=== PATIENT | male | born 1990 | race Caucasian/White ===

== ENCOUNTER 2018-10-01 01:32 | Emergency (ER) | payer OTHER ==
[2018-10-01] MEDS: ONDANSETRON (ODT) 4 MG TAB ODT (02:07)
== END 2018-10-01 02:43 | disposition home or self-care (01) ==
LOC: FTE 01:32
DX: R11.2 Nausea with vomiting, unspecified (principal); Z87.891 Personal history of nicotine dependence
CPT/HCPCS: 99283; Z7502